=== PATIENT | female | born 1965 | race Two or more races ===

== ENCOUNTER 2023-06-09 08:39 | Outpatient (CLI) | payer MEDICAID ==
[2023-06-09 11:55] LABS: BASOPHILS % (AUTO) 0.7 %; EOSINOPHILS # (AUTO) 0.1 10^3/uL (0.0-0.7); HCT - HEMATOCRIT 43.5 % (37.0-47.0); HGB - HEMOGLOBIN 13.6 g/dL (12.0-16.0); LYMPHOCYTES # (AUTO) 1.9 10^3/uL (1.5-3.5); LYMPHOCYTES % (AUTO) 31.5 %; MEAN CORPUSCULAR HEMOGLOBIN 27.9 pg (27.0-31.0); MEAN CORPUSCULAR HGB CONC 31.3 g/dL (32.0-36.0); MEAN CORPUSCULAR VOLUME 89.3 fL (81.0-99.0); MEAN PLATELET VOLUME 10.4 fL (7.9-10.8); MONOCYTES # (AUTO) 0.4 10^3/uL (0.0-1.0); MONOCYTES % (AUTO) 6.1 %; NEUTROPHILS # (AUTO) 3.6 10^3/uL (1.5-6.6); NEUTROPHILS % (AUTO) 59.5 %; PLT - PLATELET COUNT 182 10^3/uL (130-450); RED BLOOD COUNT 4.87 10^6/uL (4.20-5.40); RED CELL DISTRIBUTION WIDTH 13.6 % (12.0-15.0)
[2023-06-09 12:26] LABS: ALBUMIN 4.7 g/dL (3.2-5.5); ALBUMIN/GLOBULIN RATIO 1.5 (1.0-2.2); ALKALINE PHOSPHATASE 133 IU/L (42-121); ALT ALANINE AMINOTRANSFERASE 65 IU/L (10-60); AST ASPARTATE AMINOTRANSFERASE 30 IU/L (10-42); BILIRUBIN,TOTAL 0.5 mg/dL (0.2-1.0); BUN - BLOOD UREA NITROGEN 20 mg/dL (6-20); CALCIUM 10.7 mg/dL (8.5-10.3); CARBON DIOXIDE - CO2 31 mmol/L (21-32); CHLORIDE 104 mmol/L (101-111); CHOL/HDL RATIO 3.8 (<4.4); CHOLESTEROL 214 mg/dL; CREATININE 0.8 mg/dL (0.6-1.3); GFR - MDRD 74 (>89); GLUCOSE 99 mg/dL (74-104); HDL CHOLESTEROL 56 mg/dL; LDL CHOLESTEROL,CALCULATED 122 mg/dL; LDL/HDL RATIO 2.2 (<4.4); SODIUM 139 mmol/L (135-145); TOTAL PROTEIN 7.9 g/dL (6.4-8.9); TRIGLYCERIDES 179 mg/dL (48-352); VLDL CHOLESTEROL 36 mg/dL
[2023-06-09 12:50] LABS: ESTIMATED AVERAGE GLUCOSE 120 mg/dL (70-100); HEMOGLOBIN A1c% 5.8 % (4.27-6.07)
[2023-06-09 19:41] LABS: THYROID STIMULATING HORMONE 0.89 uIU/mL (0.34-5.60)
== END 2023-06-09 08:40 | disposition home or self-care (01) ==
LOC: LAB.N 08:39
PROVIDERS: ATTEND Family Medicine
DX: I10 Essential (primary) hypertension (principal)
CPT/HCPCS: 36415; 80053; 80061; 83036; 83721; 84443; 85025

== ENCOUNTER 2023-06-09 09:03 | Outpatient (CLI) | payer MEDICAID ==
--- NOTE | 2023-06-24 12:24 | Mammography Report ---
BILATERAL DIGITAL SCREENING MAMMOGRAM 3D/2D: 06/09/2023 CLINICAL: Routine screening. Family history of breast cancer. No prior exams were available for comparison. There are scattered areas of fibroglandular density in both breasts (category b / 25%-50% glandular t issue). There is a focal asymmetry in the left breast lower inner quadrant at posterior depth. No other significant masses, calcifications, or other findings are seen in either breast. IMPRESSION: INCOMPLETE: NEEDS ADDITIONAL IMAGING EVALUATION The focal asymmetry in the left breast is indeterminate. A diagnostic mammogram and ultrasound is re commended. Based on Tyrer-Cuzick model (a risk assessment model), the patient's lifetime risk is 25.0% and her 1 0 year risk is 9.6%. If a patient has an elevated risk, a more comprehensive evaluation should be con sidered and/or a referral to a genetic counselor. The [employer], [employer], and NCCN Guidelines advise the consideration of Breast MRI as an adjunct to screening mammog analia in patients whose "Lifetime risk to develop breast cancer" is 20% or higher. This exam was interpreted at Station ID: [id number]. NOTE: For mammograms, a report in lay terms will be sent to the patient. Approximately 15% of breast malignancies will not be visualized mammographically. In the management of a palpable breast mass, a negative mammogram must not discourage biopsy of a clinically suspicious lesion. Electronically Signed By: Evita Fragoso M.D., PH.D eb/:06/23/2023 12:11:09 ACR BI-RADS Category 0: Incomplete 3340F PARENCHYMAL PATTERN: (A) - The breast(s) demonstrate(s) scattered fibroglandular densities. BI-RADS CATEGORY: (0) - 0 Mammo and [place] [id number] Immediate follow-up LATERALITY: (B)
== END 2023-06-09 09:04 | disposition home or self-care (01) ==
LOC: DI.N 09:03
DX: Z12.31 Encounter for screening mammogram for malignant neoplasm of breast (principal); Z80.3 Family history of malignant neoplasm of breast; R92.323 Mammographic fibroglandular density, bilateral breasts; R92.8 Other abnormal and inconclusive findings on diagnostic imaging of breast

== ENCOUNTER 2023-06-16 16:34 | Outpatient (CLI) | payer MEDICAID ==
[2023-06-16 21:37] LABS: THYROID STIMULATING HORMONE 0.82 uIU/mL (0.34-5.60)
== END 2023-06-16 16:35 | disposition home or self-care (01) ==
LOC: LAB.N 16:34
PROVIDERS: ATTEND Family Medicine
DX: I10 Essential (primary) hypertension (principal); E21.3 Hyperparathyroidism, unspecified
CPT/HCPCS: 36415; 81599; 82330; 83970; 84443

== ENCOUNTER 2023-07-22 09:40 | Outpatient (CLI) | payer MEDICAID ==
--- NOTE | 2023-07-23 09:39 | Mammography Report ---
UNILATERAL LEFT DIGITAL DIAGNOSTIC MAMMOGRAM 3D/2D WITH SPOT COMPRESSION: 07/22/2023 CLINICAL: Patient returns today to evaluate a focal asymmetry in the left breast. Comparison is made to exam dated: 06/09/2023 mammogram - [facility]. The left breast is heterogeneously dense, which may obscure small masses (category c / 51-75% glandul ar tissue). The focal asymmetry in the left breast at 9 o'clock posterior depth is not seen in additional views. No other significant masses or calcifications are seen in the breast. IMPRESSION: BENIGN The focal asymmetry in the left breast seen on the screening mammogram likely respresents superimpose d fibroglandular tissue and is benign. There is no mammographic evidence of malignancy. Return to annual mammogram screening schedule is rec ommended. Based on Tyrer-Cuzick model (a risk assessment model), the patient's lifetime risk is 29.9% and her 1 0 year risk is 11.8%. If a patient has an elevated risk, a more comprehensive evaluation should be co nsidered and/or a referral to a genetic counselor. The [employer], [employer], and NCCN Guidelines advise the consideration of Breast MRI as an adjunct to screening mammo graphy in patients whose "Lifetime risk to develop breast cancer" is 20% or higher. This exam was interpreted at Station ID: [id number]. NOTE: For mammograms, a report in lay terms will be sent to the patient. Approximately 15% of breast malignancies will not be visualized mammographically. In the management of a palpable breast mass, a negative mammogram must not discourage biopsy of a clinically suspicious lesion. Electronically Signed By: Ayanna Zamarripa M.D. lk/:07/22/2023 10:59:38 ACR BI-RADS Category 2: Benign Finding(s) 3342F PARENCHYMAL PATTERN: (D) - The breast(s) demonstrate(s) heterogeneously dense fibroglandular pargurvindery ruth. BI-RADS CATEGORY: (2) - 2 Mammogram [id number] return to screening LATERALITY: (B)
== END 2023-07-22 09:41 | disposition home or self-care (01) ==
LOC: DI 09:40
PROVIDERS: ATTEND Family Medicine
DX: R92.8 Other abnormal and inconclusive findings on diagnostic imaging of breast (principal); R92.332 Mammographic heterogeneous density, left breast

== ENCOUNTER 2023-09-25 08:57 | Outpatient (CLI) | payer MEDICAID ==
--- NOTE | 2023-09-25 11:40 | DEXA Report ---
PROCEDURE: Dexa Spine and/or Hip INDICATIONS: HYPERPARATHYROIDISM TECHNIQUE: Dual energy x-ray absorptiometry (DXA) was performed on a [employer] System. Regions measur ed are the AP Spine, femoral neck, and if needed forearm. COMPARISON: None FINDINGS: Lumbar Spine: Bone Mineral Density: 0.959 g/cm/cm,T score: -1.8. Left Femoral Neck: Bone Mineral Density: 0.812 g/cm/cm, T score: -1.6. Left Hip: Bone Mineral Density: 0.902 g/cm/cm,T score: -0.8. Left Forearm: Bone Mineral Density: 0.626 g/cm/cm, T score: -0.8. (T score greater or equal to -1.0: NORMAL) (T score from -1.1 to -2.4: OSTEOPENIA) (T score less than or equal to -2.5 to: OSTEOPOROSIS) Impression: By WHO criteria, this patient has low bone density (osteopenia). Patients with diagnosis of osteoporosis or osteopenia should have regular bone mineral density assess ment. For those eligible for Medicare, routine testing is allowed once every 2 years. Testing frequ ency can be increased for patients who have rapidly progressing disease or for those who are receivin g medical therapy to restore bone mass. Reviewed by: Aixa Lyles MD on 09/25/2023 11:39 AM PDT Approved by: Aixa Lyles MD on 09/25/2023 11:39 AM PDT Station ID: [id number]
== END 2023-09-25 08:58 | disposition home or self-care (01) ==
LOC: DI 08:57
PROVIDERS: ATTEND Family Medicine
DX: M85.89 Other specified disorders of bone density and structure, multiple sites (principal); E21.3 Hyperparathyroidism, unspecified

== ENCOUNTER 2024-01-05 08:35 | Outpatient (CLI) | payer MEDICAID ==
[2024-01-05 12:33] LABS: ESTIMATED AVERAGE GLUCOSE 120 mg/dL (70-100); HEMOGLOBIN A1c% 5.8 % (4.27-6.07)
[2024-01-05 12:34] LABS: BUN - BLOOD UREA NITROGEN 19 mg/dL (6-20); CALCIUM 10.8 mg/dL (8.5-10.3); CARBON DIOXIDE - CO2 33 mmol/L (21-32); CHLORIDE 102 mmol/L (101-111); CHOL/HDL RATIO 3.7 (<4.4); CHOLESTEROL 183 mg/dL; CREATININE 0.9 mg/dL (0.6-1.3); GFR - MDRD 64 (>89); GLUCOSE 103 mg/dL (74-104); HDL CHOLESTEROL 50 mg/dL; LDL CHOLESTEROL,CALCULATED 91 mg/dL; LDL/HDL RATIO 1.8 (<4.4); POTASSIUM 4.2 mmol/L (3.5-4.5); SODIUM 140 mmol/L (135-145); TRIGLYCERIDES 209 mg/dL; VLDL CHOLESTEROL 42 mg/dL
== END 2024-01-05 08:36 | disposition home or self-care (01) ==
LOC: LAB.N 08:35
PROVIDERS: ATTEND Family Medicine
DX: Z82.49 Family history of ischemic heart disease and other diseases of the circulatory system (principal); I10 Essential (primary) hypertension
CPT/HCPCS: 36415; 80048; 80061; 83036; 83721

== ENCOUNTER 2024-02-17 10:23 | Outpatient (CLI) | payer MEDICAID | END 2024-02-17 10:24 | disposition home or self-care (01) | LOC: LAB.N 10:23 | PROVIDERS: ATTEND Family Medicine | DX: Z53.9 Procedure and treatment not carried out, unspecified reason (principal) ==

== ENCOUNTER 2024-02-17 11:33 | Outpatient (CLI) | payer MEDICAID | END 2024-02-17 11:34 | disposition home or self-care (01) | LOC: LAB 11:33 | PROVIDERS: ATTEND Family Medicine | DX: E21.3 Hyperparathyroidism, unspecified (principal) | CPT/HCPCS: 83970 ==